=== PATIENT | female | born 1995 | race Asian ===

== ENCOUNTER 2022-03-03 23:08 | Emergency (ER) | payer MEDICAID, SELFPAY ==
[~2022-03-03] VITALS: Ht 154.9 cm; Wt 48.6 kg
[~2022-03-03 23:08] MED LIST: NOCURR
[2022-03-03] MEDS ORDERED: PNV1TABL54 PO (23:16)
[2022-03-03] MEDS ORDERED: ACETAMINOPHEN 325 MG TABLET PO ONE (23:45)
[2022-03-03 23:49] LABS: COVID AG,FIA SOURCE NASAL SWAB
[2022-03-03 23:56] LABS: APPEARANCE,URINE CLEAR (CLEAR); BILIRUBIN,URINE NEGATIVE (NEGATIVE); GLUCOSE, URINE (UA) NEGATIVE (NEGATIVE); KETONES,URINE 40-60 mg/dL (NEGATIVE); LEUKOCYTE ESTERASE ,URINE SMALL (NEGATIVE); NITRATE,URINE NEGATIVE (NEGATIVE); OCCULT BLOOD,URINE NEGATIVE (NEGATIVE); PH,URINE 6.5 (5.0-8.0); PROTEIN,URINE NEGATIVE (NEGATIVE); SPECIFIC GRAVITIY, URINE 1.021 (1.003-1.030); UROBILINOGEN,URINE <=1.0 mg/dL (<=1.0)
[2022-03-04 00:07] LABS: BASOPHILS % (AUTO) 0.2 % (0.0-2.0); EOSINOPHILS % (AUTO) 0.6 % (1.0-6.0); HEMATOCRIT 30.2 % (36-46); HEMOGLOBIN 9.8 g/dL (12.0-16.0); LYMPHOCYTES # (AUTO) 0.3 K/uL (1.0-4.8); LYMPHOCYTES % (AUTO) 3.4 % (22.0-44.0); MEAN CORPUSCULAR HEMOGLOBIN 20.2 pg (26.0-34.0); MEAN CORPUSCULAR HGB CONC 32.3 G/dL (31.0-37.0); MEAN CORPUSCULAR VOLUME 62 fL (80-100); MONOCYTES # (AUTO) 1.1 K/uL (0.1-1.0); NEUTROPHILS # (AUTO) 6.2 K/uL (1.8-7.7); NEUTROPHILS % (AUTO) 81.8 % (40.0-70.0); PLATELET COUNT (AUTO) 218 K/uL (150-450); RED BLOOD CELL COUNT(AUTO) 4.84 MIL/uL (4.00-5.20); RED CELL DISTRIBUTION WIDTH 14.7 % (11.5-14.5)
[2022-03-04 00:15] LABS: INFLUENZA TYPE A NEGATIVE FOR TYPE A (NEGATIVE); INFLUENZA TYPE B NEGATIVE FOR TYPE B (NEGATIVE)
[2022-03-04 00:19] LABS: BACTERIA,URINE Rare /HPF (None Seen); RBC,URINE 0-2 /HPF (0-2); SQUAMOUS EPITHELIAL CELL,UR Moderate /LPF (None Seen)
[2022-03-04 00:19] LABS: ANION GAP 9 mmol/L (8-16); CALCIUM, TOTAL 9.2 mg/dL (8.8-10.5); CARBON DIOXIDE 23 mmol/L (22-29); CHLORIDE 101 mmol/L (98-107); CREATININE 0.72 mg/dL (0.60-1.30); GLUCOSE,RANDOM 89 mg/dL (70-110); POTASSIUM 3.6 mmol/L (3.5-5.1); SODIUM SERUM 133 mmol/L (136-145); UREA NITROGEN, BLOOD 9 mg/dL (7-18)
[2022-03-04 00:21] LABS: GLOMERULAR FILTR. RATE CALC > 60 mL/min (>60)
[2022-03-04 00:48] LABS: ALANINE AMINOTRANSFERASE 16 U/L (12-78); ALBUMIN 3.5 g/dL (3.4-5.0); ALKALINE PHOSPHATASE 29 U/L (46-116); ASPARTATE AMINOTRANSFERASE 14 U/L (15-37); BILIRUBIN,TOTAL 0.1 mg/dL (0.1-1.0); HCG,QUANTITATIVE 82458 mIU/mL (0-6); TOTAL PROTEIN, SERUM 6.8 g/dL (6.4-8.2)
[2022-03-04 02:34] VITALS: BP 96/71
== END 2022-03-04 03:00 | disposition home or self-care (01) ==
LOC: EMS 23:08
DX: O99.511 Diseases of the respiratory system complicating pregnancy, first trimester (principal); U07.1 COVID-19; O26.891 Other specified pregnancy related conditions, first trimester; R10.30 Lower abdominal pain, unspecified; R50.9 Fever, unspecified; Z3A.12 12 weeks gestation of pregnancy; Z79.899 Other long term (current) drug therapy
CPT/HCPCS: 99284; 76801; 87426; 80053; 81001; 84702; 85025; 87804; 86901; 36415; 76817; U0003; C9803

== ENCOUNTER 2023-09-16 15:20 | Emergency (ER) | payer MEDICAID, OTHER ==
[~2023-09-16] VITALS: Ht 154.9 cm; Wt 54.5 kg
[~2023-09-16 15:20] MED LIST changes: +PNV1TABL54 PO
[2023-09-16 15:59] VITALS: BP 125/75; PULSE 78; RESP 18; TEMP 98.1
[2023-09-16] MEDS ORDERED: AMOX250C4 PO (17:01)
[2023-09-16 17:09] LABS: COVID AG,FIA SOURCE NASAL SWAB
[2023-09-16 17:41] LABS: INFLUENZA TYPE A NEGATIVE FOR TYPE A (NEGATIVE); INFLUENZA TYPE B NEGATIVE FOR TYPE B (NEGATIVE); SARS-COV2 (COVID) ANTIGEN,FIA Negative (Negative)
== END 2023-09-16 17:10 | disposition home or self-care (01) ==
LOC: EMS 15:39
DX: J06.9 Acute upper respiratory infection, unspecified (principal); H65.93 Unspecified nonsuppurative otitis media, bilateral; Z87.891 Personal history of nicotine dependence; Z20.822 Contact with and (suspected) exposure to COVID-19
CPT/HCPCS: 87804; 99283

== ENCOUNTER 2025-07-12 11:55 | Emergency (ER) | payer OTHER ==
[~2025-07-12] VITALS: Ht 154.9 cm; Wt 52.0 kg
[~2025-07-12 11:55] MED LIST changes: +AMOX250C4 PO; -NOCURR; -PNV1TABL54 PO
[2025-07-12 12:10] VITALS: TEMP 98.1
[2025-07-12 12:54] LABS: PLATELET COUNT (AUTO) 312 K/uL (150-450); RED BLOOD CELL COUNT(AUTO) 5.60 MIL/uL (4.00-5.20); RED CELL DISTRIBUTION WIDTH 14.7 % (11.5-14.5); WHITE BLOOD COUNT (AUTO) 5.5 K/uL (4.5-11.0)
[2025-07-12 12:56] LABS: APPEARANCE,URINE CLEAR (CLEAR); GLUCOSE, URINE (UA) NEGATIVE (NEGATIVE); LEUKOCYTE ESTERASE ,URINE MODERATE (NEGATIVE); NITRATE,URINE NEGATIVE (NEGATIVE); OCCULT BLOOD,URINE TRACE (NEGATIVE); SPECIFIC GRAVITIY, URINE 1.009 (1.003-1.030)
[2025-07-12 13:01] LABS: SQUAMOUS EPITHELIAL CELL,UR Many /LPF (None Seen)
[2025-07-12 13:03] LABS: CALCIUM, TOTAL 9.3 mg/dL (8.8-10.5); CREATININE 0.65 mg/dL (0.60-1.30); GLOMERULAR FILTR. RATE CALC > 60 mL/min (>60); GLUCOSE,RANDOM 75 mg/dL (70-110); SODIUM SERUM 139 mmol/L (136-145); UREA NITROGEN, BLOOD 13 mg/dL (7-18)
[2025-07-12 13:13] LABS: ASPARTATE AMINOTRANSFERASE 22.0 U/L (15-37); HCG,QUANTITATIVE 1.0 mIU/mL (0-6); TOTAL PROTEIN, SERUM 7.9 g/dL (6.4-8.2)
[2025-07-12 13:16] LABS: PLATELET MORPHOLOGY COMMENT LARGE PLTS PRESENT; RBC MORPHOLOGY COMMENT ABNORMAL RBC MORPH
[2025-07-12] MEDS: LIDOCAINE 5% TRANSDERMAL PATCH TD ONE (14:30)
[2025-07-12] MEDS: KETOROLAC TROMETHAMINE 30 MG/ML VIAL IM ONE (14:30)
[2025-07-12] MEDS: CEPHALEXIN MONOHYDRATE 500 MG CAPSULE PO ONE (14:30)
[2025-07-12 15:00] VITALS: BP 129/78; PULSE 77; RESP 18; O2SAT 99
[2025-07-12] MEDS ORDERED: OMEP-148 PO (16:07)
[2025-07-12] MEDS ORDERED: CEPH-558 PO (16:07)
== END 2025-07-12 16:22 | disposition home or self-care (01) ==
LOC: EMS 11:55
DX: N39.0 Urinary tract infection, site not specified (principal); R10.13 Epigastric pain; F17.210 Nicotine dependence, cigarettes, uncomplicated; R10.20 Pelvic and perineal pain unspecified side
CPT/HCPCS: 99285; 76700; 80048; 80076; 81001; 83690; 84702; 85025; 87086; 36415; 96372; J1885